=== PATIENT | male | born 1980 | race Caucasian/White ===

== ENCOUNTER 2018-01-25 03:51 | Emergency (ER) | payer OTHER ==
[~2018-01-25] VITALS: Ht 185.4 cm; Wt 102.1 kg
[2018-01-25 04:27] LABS: EOSINOPHILS 2.6 % (0.0-3.0); HEMATOCRIT 45.6 % (42.0-52.0); HEMOGLOBIN 15.7 gm/dL (14.0-18.0); LYMPHOCYTES 46.4 % (24.0-44.0); MCH 27.4 pg (26.0-34.0); MCHC 34.4 g/dL (28.0-37.0); MCV 79.6 fL (80.0-100.0); MONOCYTES 9.4 % (1.0-8.0); PLATELET COUNT 255 thou/uL (150-400); POLYS 40.6 % (36.0-66.0); RBC 5.73 mil/uL (4.50-6.00); RDW 13.6 % (10.5-14.5); WBC 7.5 thou/uL (4.0-11.0)
[2018-01-25 04:35] LABS: ANION GAP 13 mmol/L (7-16); BUN 18 mg/dL (7-18); CALCIUM 9.1 mg/dL (8.5-10.1); CHLORIDE 105 mmol/L (98-107); CO2 24 mmol/L (21-32); CREATININE 1.4 mg/dL (0.7-1.3); GLUCOSE 162 mg/dL (74-106); POTASSIUM 3.3 mmol/L (3.5-5.1); SODIUM 142 mmol/L (136-145)
[2018-01-25 04:41] LABS: ALBUMIN 3.8 g/dL (3.4-5.0); DIRECT BILIRUBIN < 0.1 mg/dL (<0.1-0.3); LIPASE 269 U/L (73-393); SGOT 38 U/L (15-37); SGPT 61 U/L (30-65); TOTAL BILIRUBIN 0.3 mg/dL (<0.1-1.0); TOTAL PROTEIN 7.4 g/dL (6.4-8.2)
[2018-01-25] MEDS ORDERED: FLOMAX0.4 MG PO (06:07)
[2018-01-25] MEDS ORDERED: PHENERGAN 25 MG25 M1 PO (06:07)
[2018-01-25] MEDS ORDERED: NORCO 5-325 TA1 EACH PO (06:07)
[2018-01-25] MEDS ORDERED: ZOFRAN ODT4 MG PO (06:07)
[2018-01-25 06:09] LABS: URINE BILIRUBIN NEGATIVE (Negative); URINE BLOOD 3+ (Negative); URINE CLARITY CLEAR; URINE COLOR YELLOW; URINE GLUCOSE-RANDOM* NEGATIVE (Negative); URINE KETONES NEGATIVE (Negative); URINE LEUKOCYTES NEGATIVE (Negative); URINE NITRITE NEGATIVE (Negative); URINE PROTEIN (DIPSTICK) NEGATIVE (Negative); URINE SPECIFIC GRAVITY <= 1.005 (1.005-1.035); URINE UROBILINOGEN 0.2 E.U./dl (0.2-1.0)
[2018-01-25 06:46] LABS: CASTS None Seen /LPF (None Seen); CRYSTALS None Seen /LPF (None Seen); SQUAMOUS None Seen /LPF (0-3); URINE RBC >20 Many /HPF (0-2)
[2018-01-25 06:48] LABS: BACTERIA 1-9 Few /HPF (None Seen); URINE WBC 0-5 Rare /HPF (0-5)
[2018-01-25 06:59] VITALS: BP 135/93
[2018-01-25] MEDS ORDERED: KEFLEX500 M1 PO (07:03)
== END 2018-01-25 07:17 | disposition home or self-care (01) ==
LOC: ER 03:51
PROVIDERS: Emergency Medicine
DX: N20.1 Calculus of ureter (principal); R11.2 Nausea with vomiting, unspecified; R74.0 Nonspecific elevation of levels of transaminase and lactic acid dehydrogenase [LDH]